=== PATIENT | female | born 1935 | race Caucasian/White ===

== ENCOUNTER 2016-12-30 16:20 | Inpatient (IN) ==
[2016-12-30] MEDS ORDERED: MORPHINE 2 MG/1 ML SYRINGE IV PRN (16:26)
[2016-12-30] MEDS ORDERED: ONDANSETRON 4 MG/2 ML VIAL IV PRN (16:26)
[2016-12-30] MEDS ORDERED: SODIUM CHLORIDE 0.9% 250 ML IV PRN (16:26)
[2016-12-30] MEDS ORDERED: NALOXONE 0.4 MG/ML VIAL IV PRN (16:26)
[2016-12-30] MEDS ORDERED: ACETAMINOPHEN 325 MG TABLET PO PRN (16:26)
[2016-12-30 18:25] LABS: Hematocrit 19.8 VOL% (35.7-47.0)
[2016-12-30 18:38] LABS: Hemoglobin 5.8 GM/DL (12.0-16.0)
[2016-12-30 18:57] LABS: % Iron Saturation 3.6 % (18-50); Ferritin 14.8 ng/ml (8-252)
[2016-12-30 19:32] LABS: Folate > 24.0 NG/ML (5.4-24.0); Vitamin B12 1915 PG/ML (211-911)
[2016-12-30] MEDS: SODIUM CHLORIDE 0.9% 1,000 ML IV SCH (19:33)
[2016-12-30] MEDS: DOCUSATE SODIUM 100 MG CAPSULE PO SCH (20:42)
[2016-12-30] MEDS: PANTOPRAZOLE 40 MG VIAL IV SCH (20:42)
[2016-12-31 00:06] LABS: Hematocrit 16.9 VOL% (35.7-47.0)
[2016-12-31 06:24] LABS: Basophils % 0.6 % (0.0-0.8); Eosinophils # 0.3 10*3/uL (0.0-0.87); Eosinophils % 4.4 % (0.00-10.9); Hematocrit 26.6 VOL% (35.7-47.0); Immature Granulocytes % 0.3 %; Immature Granulocytes Absolute 0.02 #; Lymphocytes # 1.9 10*3/uL (1.4-4.0); Lymphocytes % 29.5 % (21.3-54.2); Mean Corpuscular HGB Conc 30.5 GM/DL (32-36); Mean Corpuscular Hemoglobin 25 PG (27-34); Mean Corpuscular Volume 81.6 FL (87-102); Mean Platelet Volume 10.9 FL (9.6-12.0); Monocytes # 0.7 10*3/uL (0.11-0.8); Monocytes % 11.4 % (1.7-12.7); Neutrophils # 3.4 10*3/uL (1.4-7.4); Neutrophils % 53.8 % (38.7-73.9); Platelet Count 234 T/CUMM (130-400); Red Blood Count 3.26 MC/CUMM (3.8-5.5); Red Cell Distribution Width 15.9 % (9.3-17.3); White Blood Count 6.3 T/CUMM (4-12)
[2016-12-31 06:44] LABS: Calcium 8.4 MG/DL (8.5-10.1); Osmolality,Calculated 289.8 MOS/KG (273-304); Potassium 4.8 MMOL/L (3.5-5.1)
[2016-12-31 06:55] LABS: Hemoglobin 8.1 GM/DL (12.0-16.0)
--- NOTE | 2016-12-31 08:01 | Family Practice History&Phys ---
Assessment and Plan (1) Iron deficiency anemia Status: Acute Assessment and plan: 12/31/2016: Stool for occult blood has been ordered but not obtained. She is noted to have low iron and low ferritin level. GI has been consulted. She has been held n.p.o. since midnight. Her hemoglobin dropped down to 5 g and it is up to 8.1 this morning. Current Visit: Yes History of Present Illness Chief complaint: Weakness History of present illness: Ms. Alvares is a 81 year old female Patient is a 81-year-old white female was in the office yesterday with complaint of right shoulder pain. She was in the office for preoperative evaluation. Note that she was quite pale and her hemoglobin was 6. Patient denied any melena or blood in her stool but frankly told me she never looks. Patient was admitted for further evaluation for symptomatic anemia. She has never had a bleeding ulcer in the past and she denies any gross rectal bleeding. Patient does have dementia and history is of questionable validity. She denies any abdominal pain she does not have any dyspepsia or dysphagia. I have checked her B12 and folic acid fairly recently and these were normal. Home Medications Medication Instructions Recorded Confirmed Type Lisinopril 10 mg PO QAM 11/01/16 12/31/16 History Cholecalciferol (Vitamin D3) 1 capsule PO DAILY 12/31/16 12/31/16 History [Vitamin D3] Cyanocobalamin (Vitamin B-12) 1 tablet PO DAILY 12/31/16 12/31/16 History [Vitamin B-12] Multivit-Min/FA/Lycopen/Lutein 1 each PO DAILY 12/31/16 12/31/16 History [Centrum Silver Tablet] [place]-3/Dha/Epa/Fish Oil [Fish Oil 1 capsule PO DAILY 12/31/16 12/31/16 History 1,000 mg Softgel] Thiamine Mononitrate [Vitamin B-1] 1 tablet PO DAILY 12/31/16 12/31/16 History Vitamin E 1 capsule PO DAILY 12/31/16 12/31/16 History Allergies Allergy/AdvReac Type Severity Reaction Status Date / Time No Known Allergies Allergy Verified 11/28/16 02:37 - Constitutional Constitutional: Present: malaise, weakness. Absent: chills, fever(s) - EENT Eyes: Absent: blurry vision, loss of vision Ears: Absent: decreased hearing, ear pain Nose, mouth and throat: Absent: dysphagia, nasal congestion, sinus pressure, sore throat - Cardiovascular Cardiovascular: Absent: chest pain at rest, orthopnea, palpitations, PND - Respiratory Respiratory: Present: dyspnea on exertion. Absent: cough, wheezing - Gastrointestinal Gastrointestinal: Absent: abdominal pain, coffee ground emesis, diarrhea, dyspepsia, dysphagia, hematemesis, hematochezia, melena, nausea, vomiting - Genitourinary Genitourinary: Absent: difficulty urinating, hematuria, urinary frequency, urinary hesitancy - Musculoskeletal Musculoskeletal: Absent: arthralgias, back pain - Neurological Neurological: Absent: abnormal gait, confusion, focal weakness, numbness, paresthesias - Psychiatric Psychiatric: Absent: anxiety, confusion - Endocrine Endocrine: Present: fatigue. Absent: polydipsia, polyphagia - Hematologic/Lymphatic Hematologic/Lymphatic: Absent: easy bleeding, easy bruising Medical,Surgical,& Family Hx - Medical History Cardio: History of: Hypertension Neurology: History of: Dementia Musculoskeletal: History of: Musculoskeletal Problems (rotator cuff from fall, and toes operated on) - Surgical History HEENT Surgeries: Surgical HX of: Tonsilectomy & Adenoidectomy Reproductive Surgeries: Surgical HX of;: Breast Surgery (mastectomy but no cancer), Hysterectomy - Family History Family History: noncontributory - Social History Smoking Status: Never smoker Frequency of Alcohol Use: None Type of Drug Use: None Exam - Constitutional Vitals: Period Temp Pulse Resp BP Sys/Quevedo Pulse Ox Last 24 Hr 97.2 F-98 F 66-84 18-20 110-139/56-79 100-100 Exam: General: Objective patient is a well-developed white female in no acute distress. She is noted to have prominent pallor. HEENT: Conjunctiva is pale as of her mucous membranes. She is noted to have no pharyngeal abnormality in the TMs are normal bilaterally. Neck: No meningismus, adenopathy, thyromegaly. There are no auscultated carotid bruits. Cardiovascular: Regular rhythm. No murmurs or gallops Chest: Clear to auscultation without rales rhonchi wheezes. Abdomen: Soft nontender to palpation No masses, rebound, guarding or tenderness. Neuro: Cranial nerves intact and DTRs and strength symmetric in all extremities. Dermatologic: No evidence of abnormal lesions or masses. Musculoskeletal: There is no joint swelling or tenderness or deformity. Extremities: There is no calf swelling or tenderness. Results - Labs CBC & BMP: 12/31/16 06:04 12/31/16 06:04 Lab Results: I have reviewed the past 24 hour labs
[2016-12-31 09:18] LABS: Hematocrit 25.8 VOL% (35.7-47.0); Hemoglobin 8.1 GM/DL (12.0-16.0)
--- NOTE | 2016-12-31 09:45 | Gastrointestinal Consult Note ---
Assessment and Plan (1) Symptomatic anemia Status: Acute Assessment and plan: 12/31-admitted with hemoglobin of 6 with complaints of weakness. No prior history of known anemia. Last known EGD as below. Iron studies noted. Reports of NSAID use daily. Elevated BUN/creatinine ratio 32. Plan for tentative EGD tomorrow to further evaluate source of anemia. Plan an addendum to followed by Dr. Crocker. Current Visit: Yes History of Present Illness Chief complaint: Anemia History of present illness: Ms. Alvares is a 81 year old female who was admitted to the hospital this morning with complaints of weakness and right shoulder pain. She was seen in clinic yesterday by Dr. Johnson with complaints of shoulder pain which she was therefore a preoperative evaluation. She was found at that time to have a hemoglobin of 6 and did have some symptomatic anemia with complaints of weakness. She is a fair historian with questionable history of dementia therefore information is obtained from chart review. Patient states she has never been anemic in the past that she can recall. She denies having history of blood transfusions as well. She denies any epigastric pain, dyspepsia, dysphagia or recent weight loss. She denies any reports of melena or hematochezia. She denies any nausea or vomiting. She is not currently taking any anticoagulants however she does admit to taking approximately 5-6 ibuprofen daily and has done so for "a while" for her shoulder pain. She denies a prior history of peptic ulcer disease. Her last known upper endoscopy was noted 2012 with findings of esophageal stricture with dilation at that time. Unable to locate most recent colonoscopy in facility database and patient is unable to recall this. Patient is noted to have a BUN/creatinine ratio of 32. She has been transfused 2 units of packed red blood cells and H&H is noted 12/13. She also has had iron studies done with an iron of 16, TIBC of 446, percent saturation of 3.6. Home Medications Medication Instructions Recorded Confirmed Type Lisinopril 10 mg PO QAM 11/01/16 12/31/16 History Cholecalciferol (Vitamin D3) 1 capsule PO DAILY 12/31/16 12/31/16 History [Vitamin D3] Cyanocobalamin (Vitamin B-12) 1 tablet PO DAILY 12/31/16 12/31/16 History [Vitamin B-12] Multivit-Min/FA/Lycopen/Lutein 1 each PO DAILY 12/31/16 12/31/16 History [Centrum Silver Tablet] [place]-3/Dha/Epa/Fish Oil [Fish Oil 1 capsule PO DAILY 12/31/16 12/31/16 History 1,000 mg Softgel] Thiamine Mononitrate [Vitamin B-1] 1 tablet PO DAILY 12/31/16 12/31/16 History Vitamin E 1 capsule PO DAILY 12/31/16 12/31/16 History Allergies Allergy/AdvReac Type Severity Reaction Status Date / Time No Known Allergies Allergy Verified 11/28/16 02:37 Medical,Surgical,& Family Hx - Medical History Cardio: History of: Hypertension Neurology: History of: Dementia Musculoskeletal: History of: Musculoskeletal Problems (rotator cuff from fall, and toes operated on) - Surgical History HEENT Surgeries: Surgical HX of: Tonsilectomy & Adenoidectomy Reproductive Surgeries: Surgical HX of;: Breast Surgery (mastectomy but no cancer), Hysterectomy - Social History Smoking Status: Never smoker Frequency of Alcohol Use: None Type of Drug Use: None 12 point system: reviewed and no additional remarkable complaints except as stated - Constitutional Constitutional: Present: as per HPI - EENT Eyes: Present: as per HPI Ears: Present: as per HPI Nose, mouth and throat: Present: as per HPI - Cardiovascular Cardiovascular: Present: as per HPI - Respiratory Respiratory: Present: as per HPI - Gastrointestinal Gastrointestinal: Present: as per HPI - Genitourinary Genitourinary: Present: as per HPI - Musculoskeletal Musculoskeletal: Present: as per HPI, arthralgias, other (Shoulder pain) - Neurological Neurological: Present: as per HPI - Psychiatric Psychiatric: Present: as per HPI - Endocrine Endocrine: Present: as per HPI - Hematologic/Lymphatic Hematologic/Lymphatic: Present: as per HPI Exam - Constitutional Vitals: Period Temp Pulse Resp BP Sys/Quevedo Pulse Ox Last 24 Hr 97.1 F-98 F 66-84 18-20 110-139/56-79 91-100 General appearance: normal weight, no acute distress - Head Head exam: Present: normal inspection, normocephalic - Eye Eye exam: Present: other (Lives and identified unremarkable). Absent: scleral icterus - ENT ENT exam: Present: normal exam, normal oropharynx - Neck Neck exam: Present: normal inspection - Respiratory Respiratory exam: Present: clear to auscultation bilaterally. Absent: rales, rhonchi, wheezes - Cardiovascular Cardiovascular exam: Present: regular rate and rhythm. Absent: diastolic murmur , JVD, systolic murmur - GI/Abdominal GI/Abdominal exam: Present: normal bowel sounds, soft. Absent: ascites, distended, mass, organomegaly, tenderness - Extremities Exam Extremities exam: Present: normal inspection, full ROM - Back Exam Back exam: Present: normal inspection - Neurological Exam Neurological exam: Present: alert, oriented X3 - Psychiatric Psychiatric exam: Present: normal affect, normal mood - Skin Skin exam: Present: normal color, warm, dry Results - Labs CBC & BMP: 12/31/16 08:52 12/31/16 06:04 Lab Results: I have reviewed the past 24 hour labs
[2016-12-31 10:01] LABS: Apearance,Urine Slightly Hazy (Clear); Bacteria,Urine Occasional /HPF (Few); Bilirubin,Urine Negative (Negative); Blood, Urine Negative (Negative); Glucose,Urine (UA) Negative (Negative); Hyaline Casts,Urine 1 /LPF (0-3); Ketones,Urine Negative (Negative); Mucus,Urine Occasional /LPF (Occasional); Nitrite,Urine Negative (Negative); Protein,Urine Negative; RBC,Urine 1 /HPF (0-4); Squamous Epithelial Cell,Urine Occasional /HPF (0-10); Urine Color Yellow (Yellow); Urine Specific Gravity 1.013 (1.001-1.035); Urine Urobilinogen < 2.0 EU/DL (0.2-1.0); WBC,Urine 8 /HPF (0-6)
[2016-12-31] MEDS: GABAPENTIN 100 MG CAPSULE PO SCH (10:16)
[2016-12-31] MEDS: LISINOPRIL 10 MG TABLET PO SCH (10:16)
[2016-12-31] MEDS: DOCUSATE SODIUM 100 MG CAPSULE PO SCH ×2 (10:20→20:56)
[2016-12-31] MEDS: PANTOPRAZOLE 40 MG VIAL IV SCH ×2 (10:23→20:56)
[2016-12-31] MEDS: SODIUM CHLORIDE 0.9% 1,000 ML IV SCH ×2 (11:18→20:56)
[2016-12-31 11:29] LABS: Hematocrit 25.3 VOL% (35.7-47.0)
--- NOTE | 2016-12-31 12:56 | EKG Report ---
Stationary ECG Study [facility] Test Date: 12/31/2016 12:55:12 PM Pat Name: EVELYNE ALVARADO Department: Room: 238 Gender: F [employer]: : 1935 Requested by: Oxana Ortiz Order Number: [id number] Reading MD: MING PETERSON Intervals [place] Rate: 78 P: 57 MT: 108 QRS: 37 QRSD: 86 T: 50 QT: 383 QTc: 417 Interpretive Statements SINUS RHYTHM WITH SHORT MT INTERVAL NONSPECIFIC T-WAVE ABNORMALITY Electronically Signed On 12-31-16 22:27:34 CDT by MING PETERSON [email or web address]
[2016-12-31 17:55] LABS: Hematocrit 27.2 VOL% (35.7-47.0); Hemoglobin 8.4 GM/DL (12.0-16.0)
[2017-01-01 01:02] LABS: Hematocrit 25.8 VOL% (35.7-47.0); Hemoglobin 7.9 GM/DL (12.0-16.0)
[2017-01-01] MEDS: SODIUM CHLORIDE 0.9% 1,000 ML IV SCH ×2 (05:00→17:10)
[2017-01-01 06:48] LABS: Hematocrit 24.8 VOL% (35.7-47.0); Hemoglobin 7.7 GM/DL (12.0-16.0)
--- NOTE | 2017-01-01 08:18 | Family Practice Progress Note ---
Family Practice - PN: Subj Interval history: Patient states she is feeling better this morning she denies any abdominal pain or discomfort. Her color certainly much better than was on admission. Her hematocrit has dropped to 25.8. She is scheduled for EGD this morning. She denies any nausea or vomiting. Exam (Progress Note) - Constitutional Vitals: Period Temp Pulse Resp BP Sys/Quevedo Pulse Ox Last 24 Hr 96.5 F-98.5 F 71-84 18-20 124-136/64-78 93-98 Exam: Objective a well-developed white female no acute distress. She is awake alert and able give good history. She states she is comfortable and having no pain or discomfort. Cardiovascular: Heart rates regular without murmurs or gallops. Respiratory: Lungs clear to auscultation bilaterally. Abdomen: Abdomen soft and nontender to palpation. Results - Labs CBC & BMP: 01/01/17 05:53 12/31/16 06:04 Lab Results: I have reviewed the past 24 hour labs Assessment and Plan (1) Iron deficiency anemia Status: Acute Assessment and plan: 12/31/2016: Stool for occult blood has been ordered but not obtained. She is noted to have low iron and low ferritin level. GI has been consulted. She has been held n.p.o. since midnight. Her hemoglobin dropped down to 5 g and it is up to 8.1 this morning. 01/01/2017: Patient scheduled for EGD this morning. Current Visit: Yes
[2017-01-01] MEDS: LISINOPRIL 10 MG TABLET PO SCH (09:00)
[2017-01-01] MEDS: GABAPENTIN 100 MG CAPSULE PO SCH ×2 (09:00→17:11)
[2017-01-01] MEDS: DOCUSATE SODIUM 100 MG CAPSULE PO SCH ×2 (09:00→21:05)
[2017-01-01] MEDS: PANTOPRAZOLE 40 MG VIAL IV SCH ×2 (10:10→21:05)
[2017-01-01 11:59] LABS: Hematocrit 25.7 VOL% (35.7-47.0)
[2017-01-01] MEDS ORDERED: PROPOFOL 200 MG/20 ML VIAL IV ONE (12:46)
[2017-01-01] MEDS ORDERED: LIDOCAINE 2% 5 ML VIAL ONE (12:46)
--- NOTE | 2017-01-01 12:50 | History and Physical Update ---
History and Physical Update - History and Physical H&P was reviewed, the patient examined and there: are no changes in the patients condition since last H&P was completed. - Physical Exam Mental Status: alert and oriented Heart: regular rate and rhythm Lung: clear to auscultation Abdomen: within normal limits Vitals: within normal limits
--- NOTE | 2017-01-01 12:59 | Operative Note ---
Date of procedure: 01/01/17 Pre-op diagnosis: Iron deficiency anemia Procedure: Procedure: Esophagogastroduodenoscopy with biopsies gastric ulcer Brief clinical abstract: 81-year-old female was admitted with symptomatic iron deficiency anemia. She had hemoglobin of 6 on presentation. She denies any localizing symptoms including gross bleeding. Patient had been taking ibuprofen 800 mg 2-3 times a day for the last couple months. Indication for procedure: Iron deficiency anemia Endoscopic findings:[After informed consent was obtained, the patient was placed in the left lateral decubitus position. The gastroscope was inserted in the upper esophagus under direct vision with no resistance encountered. Esophageal mucosa appeared normal with squamocolumnar junction sharply demarcated at the diaphragmatic indentation. The endoscope was advanced in the stomach which was carefully examined including retroflexed view of the cardia and fundus. There was an approximate 1 cm diameter white based ulcer along the lesser curve in the proximal fundus above the angularis. Multiple biopsies were obtained from this for pathologic examination. It had benign appearance. Remainder the stomach appeared normal. Duodenal bulb, second and third portion of the duodenum appeared normal. The endoscope was removed and patient appeared to tolerate procedure well. Impression: #1 gastric ulcer #2 otherwise normal EGD Recommendations: PPI therapy. Stop nonsteroidal medication use. Patient needs colonoscopy also at some point and will talk to her and family about timing of this. Anesthesia: GETA (tiva) Surgeon / Physician: Rainer Crocker Estimated blood loss: minimal Specimens: other (Gastric ulcer) Condition: stable Disposition: post procedure unit Results - Labs CBC & BMP: 01/01/17 11:34 12/31/16 06:04 Discharge Plan - Discharge Medications No Action Vitamin E 1 capsule PO DAILY Thiamine Mononitrate [Vitamin B-1] 1 tablet PO DAILY [place]-3/Dha/Epa/Fish Oil [Fish Oil 1,000 mg Softgel] 1 capsule PO DAILY Cyanocobalamin (Vitamin B-12) [Vitamin B-12] 1 tablet PO DAILY Cholecalciferol (Vitamin D3) [Vitamin D3] 1 capsule PO DAILY Lisinopril 10 mg PO QAM Multivit-Min/FA/Lycopen/Lutein [Centrum Silver Tablet] 1 each PO DAILY - Follow Up or Referral - Forms/Instructions
--- NOTE | 2017-01-01 13:09 | Anesthesia Post-Op ---
Anesthesia Post OP - Post Ansesthetic Evaluation Patient seen in post op: Yes Resp: within normal limits CV: within normal limits Mental: within normal limits Temp: within normal limits [id number]-[id number]: within normal limits Nausea and Vomiting: within normal limits Pain: within normal limits
[2017-01-01] MEDS ORDERED: POLYETHYLENE GLYCOL POWDER 255 GM BOTTLE PO ONE (18:00)
[2017-01-02] MEDS ORDERED: MAGNESIUM CITRATE 300 ML BOTTLE PO ONE (06:00)
[2017-01-02] MEDS ORDERED: SODIUM CHLORIDE 0.9% 250 ML IV PRN (07:26)
[2017-01-02 07:45] LABS: Basophils % 0.5 % (0.0-0.8); Eosinophils # 0.3 10*3/uL (0.0-0.87); Eosinophils % 3.2 % (0.00-10.9); Hematocrit 27.5 VOL% (35.7-47.0); Hemoglobin 8.4 GM/DL (12.0-16.0); Immature Granulocytes % 0.6 %; Immature Granulocytes Absolute 0.05 #; Lymphocytes # 0.9 10*3/uL (1.4-4.0); Mean Corpuscular HGB Conc 30.5 GM/DL (32-36); Mean Corpuscular Hemoglobin 25 PG (27-34); Mean Corpuscular Volume 80.4 FL (87-102); Mean Platelet Volume 11.1 FL (9.6-12.0); Monocytes # 0.9 10*3/uL (0.11-0.8); Monocytes % 10.9 % (1.7-12.7); Neutrophils % 73.8 % (38.7-73.9); Platelet Count 213 T/CUMM (130-400); Red Blood Count 3.42 MC/CUMM (3.8-5.5); Red Cell Distribution Width 16.7 % (9.3-17.3); White Blood Count 8.2 T/CUMM (4-12)
[2017-01-02] MEDS ORDERED: FUROSEMIDE 20 MG/2 ML VIAL IV ONE ×2 (08:00→12:00)
--- NOTE | 2017-01-02 08:00 | Family Practice Progress Note ---
Family Practice - PN: Subj Interval history: Patient states she had a good night last night. Is found to have gastric ulcer on EGD with no active bleeding. Repeat hematocrits are running around 25% and I think she needs a couple more units of blood. She is scheduled for colonoscopy today. Patient is noted to have decreased O2 sats on her vital signs and I am going to get a chest x-ray this a.m. Exam (Progress Note) - Constitutional Vitals: Period Temp Pulse Resp BP Sys/Quevedo Pulse Ox Last 24 Hr 97.1 F-98.9 F 73-100 16-20 114-172/57-065 90-100 Exam: Objective a well-developed white female no acute distress. She is awake alert and able give good history. She complains of little dyspnea this morning and back pain. Cardiovascular: Heart rates regular without murmurs or gallops. Respiratory: Lungs clear to auscultation bilaterally. Abdomen: Abdomen soft and nontender to palpation. Results - Labs CBC & BMP: 01/02/17 07:37 12/31/16 06:04 Lab Results: I have reviewed the past 24 hour labs Assessment and Plan (1) Iron deficiency anemia Status: Acute Assessment and plan: 12/31/2016: Stool for occult blood has been ordered but not obtained. She is noted to have low iron and low ferritin level. GI has been consulted. She has been held n.p.o. since midnight. Her hemoglobin dropped down to 5 g and it is up to 8.1 this morning. 01/01/2017: Patient scheduled for EGD this morning. 01/02/2017: Patient with gastric ulcer on EGD, continue PPI. Her hematocrit still 25% through the night and I am going to give her 2 more units of blood. Current Visit: Yes (2) Dyspnea Status: Acute Assessment and plan: 01/02/2017: Chest x-ray has been ordered. And 20 mg of Lasix will be ordered Current Visit: Yes
[2017-01-02 08:19] LABS: Calcium 8.6 MG/DL (8.5-10.1); Potassium 4.2 MMOL/L (3.5-5.1)
[2017-01-02] MEDS ORDERED: PROPOFOL 200 MG/20 ML VIAL IV ONE (09:00)
[2017-01-02] MEDS: LISINOPRIL 10 MG TABLET PO SCH (09:00)
[2017-01-02] MEDS ORDERED: LIDOCAINE 2% 5 ML VIAL ONE (09:00)
[2017-01-02] MEDS: GABAPENTIN 100 MG CAPSULE PO SCH ×2 (09:00→19:10)
[2017-01-02] MEDS: DOCUSATE SODIUM 100 MG CAPSULE PO SCH ×2 (09:00→21:11)
--- NOTE | 2017-01-02 09:06 | XRay Report ---
XR chest 1V portable Indication: Dyspnea Comparison: None available Findings: The heart and mediastinum are stable in size and configuration. The pulmonary vascularity is normal in caliber. Surgical changes are present in the right chest wall similar to previous exam. No lung infiltrates, effusions, pneumothorax or other abnormality is demonstrated. Impression: No evidence of acute process or interval change. PROCEDURE INTERPRETED AT [facility] DEPARTMENT OF RADIOLOGY Final Report Signed by: Dr. Dennis Garcia
[2017-01-02] MEDS: SODIUM CHLORIDE 0.9% 1,000 ML IV SCH ×2 (09:15→18:24)
[2017-01-02] MEDS: PANTOPRAZOLE 40 MG VIAL IV SCH ×2 (10:50→21:11)
--- NOTE | 2017-01-02 11:29 | Pathology Report from [facility] ---
[facility] ACCESSION # : [id number] PATIENT NAME : Evelyne Alvares ORDERING DR : VALERIY HERRERA MD CLINICAL HX: Anemia POST-OP DX: Gastric ulcer SPECIMEN INFO: Gastric ulcer GROSS DESCRIPTION: The specimen is received in formalin labeled with the patients name and consists of a 0.5 x 0.3 cm aggregate of ibarra tissue. Submitted in one cassette. DIAGNOSIS FOR EVELYNE ALVARES: GASTRIC ULCER BIOPSY: Fragmented superficial gastric mucosa with regenerative changes and blood. H. pylori not seen on H&E or special stain with appropriate control. COLLECTED DATE: 01/01/2017 [facility] REPORT DATE: 01/02/2017 ELECTRONICALLY SIGNED BY: Mir Barnett M.D. 01/02/2017 - 10:08:05 LAURIE
--- NOTE | 2017-01-02 13:31 | Operative Note ---
Date of procedure: 01/02/17 Pre-op diagnosis: Iron deficiency anemia Procedure: Procedure note: Colonoscopy with snare polypectomy Physician: Dr. Angel Crocker Brief clinical abstract: 81-year-old female was admitted with symptomatic iron deficiency anemia. She had gastric ulcer on EGD yesterday. Endoscopic findings: After informed consent was obtained, the patient was placed in the left lateral decubitus position. Digital rectal exam was performed with no palpable abnormalities felt. Pediatric videocolonoscope was inserted into the rectum and advanced to the cecum without difficulty. Retroflex view within the cecum was performed back to the level of the hepatic flexure. The endoscope was advanced back to the cecum and on withdrawal colonic mucosa was carefully examined. Bowel prep was of good quality. Withdrawal time was over 6 minutes duration. Vascular pattern throughout the colon appeared normal. There were a moderate number of diverticuli in the left colon. A 6 mm polyp was noted in the distal sigmoid colon and removed with snare using coagulation current. The endoscope was withdrawn in the rectum with retroflex view showing moderate sized internal hemorrhoids. The endoscope was removed and she appeared to tolerate the procedure well. Impression: #1 sigmoid colon polyp #2 left colon diverticulosis #3 moderate sized internal hemorrhoids Plan: At age 81, would discontinue colon cancer screening measures. Continue PPI therapy for gastric ulcer and have given instructions for her to discontinue NSAID use. Noted also that gastric ulcer had benign pathology with no H pylori seen. I will sign off. Please call if needed. Anesthesia: GETA (tiva) Surgeon / Physician: Rainer Crocker Estimated blood loss: none Specimens: other (Sigmoid colon polyp) Condition: stable Disposition: post procedure unit Results - Labs CBC & BMP: 01/02/17 07:37 01/02/17 07:37 Discharge Plan - Discharge Medications No Action Vitamin E 1 capsule PO DAILY Thiamine Mononitrate [Vitamin B-1] 1 tablet PO DAILY [place]-3/Dha/Epa/Fish Oil [Fish Oil 1,000 mg Softgel] 1 capsule PO DAILY Cyanocobalamin (Vitamin B-12) [Vitamin B-12] 1 tablet PO DAILY Cholecalciferol (Vitamin D3) [Vitamin D3] 1 capsule PO DAILY Lisinopril 10 mg PO QAM Multivit-Min/FA/Lycopen/Lutein [Centrum Silver Tablet] 1 each PO DAILY - Follow Up or Referral - Forms/Instructions
--- NOTE | 2017-01-02 13:44 | Anesthesia Post-Op ---
Anesthesia Post OP - Post Ansesthetic Evaluation Patient seen in post op: Yes Resp: within normal limits CV: within normal limits Mental: within normal limits Temp: within normal limits Kofo-Lk-[id number]: within normal limits Nausea and Vomiting: within normal limits Pain: within normal limits
[2017-01-03] MEDS: SODIUM CHLORIDE 0.9% 1,000 ML IV SCH ×2 (04:04→10:31)
[2017-01-03 07:02] LABS: Basophils % 0.5 % (0.0-0.8); Eosinophils # 0.4 10*3/uL (0.0-0.87); Eosinophils % 4.5 % (0.00-10.9); Hematocrit 32.7 VOL% (35.7-47.0); Immature Granulocytes % 0.3 %; Immature Granulocytes Absolute 0.03 #; Lymphocytes # 1.1 10*3/uL (1.4-4.0); Lymphocytes % 12.4 % (21.3-54.2); Mean Corpuscular HGB Conc 31.5 GM/DL (32-36); Mean Corpuscular Hemoglobin 25 PG (27-34); Mean Corpuscular Volume 79.4 FL (87-102); Mean Platelet Volume 11.8 FL (9.6-12.0); Monocytes # 0.9 10*3/uL (0.11-0.8); Monocytes % 10.5 % (1.7-12.7); Neutrophils # 6.3 10*3/uL (1.4-7.4); Neutrophils % 71.8 % (38.7-73.9); Platelet Count 193 T/CUMM (130-400); Red Cell Distribution Width 16.4 % (9.3-17.3); White Blood Count 8.8 T/CUMM (4-12)
[2017-01-03 07:11] LABS: Hemoglobin 10.3 GM/DL (12.0-16.0); Red Blood Count 4.12 MC/CUMM (3.8-5.5)
[2017-01-03] MEDS ORDERED: cefTRIAXone 1,000 MG in SODIUM CHLORIDE 0.9% 100 ML IV ONE (07:36)
[2017-01-03 08:07] VITALS: BP 148/73
--- NOTE | 2017-01-03 08:23 | Discharge Summary ---
Hospital Course - Hospital Course Hospital Course: Patient 81-year-old white female presented to the office with weakness, pallor and was here for preoperative evaluation. She was found to have a hemoglobin of 6 was admitted for further evaluation. Her hemoglobin dropped to 5 and she was transfused 4 units packed red blood cells. Hemoglobin was 10 this morning. Patient was seen in consultation by Dr. Chepe Crocker was found to have a gastric ulcer, diverticulosis and a colonic polyp. There was no active site of bleeding in the location. Patient felt much better after transfusion of course and is anxious for discharge today. I told her we would have to delay her surgery until we make sure her blood count stabilized. She is to return the office next week for repeat CBC. Diagnosis - Discharge Diagnosis (1) Iron deficiency anemia Status: Acute (2) Dyspnea Status: Acute (3) Gastric ulcer Status: Acute Discharge Plan - Discharge Data Disposition: Disch To Home/Self Care Condition at Discharge: Stable Discharge Diet: advance to your usual diet Activity: resume usual activities as tolerated Hygiene: no restrictions Weight Bearing at Discharge: full weight bearing Contact your physician if you experience:: fever over 101, Shortness of breath, Bleeding - Discharge Medications New Amoxicillin Cap/Tab 875 mg PO BID #14 tablet Gabapentin Cap/Tab [Neurontin Cap/Tab] 100 mg PO QAM capsule Sertraline [Zoloft] 50 mg PO BID #30 tablet Acetaminophen Tab [Tylenol Tab] 650 mg PO Q6H PRN tablet PRN Reason: Fever > 100.4 Or Headache Pantoprazole Tab [Protonix Tab] 40 mg PO BID #60 tablet Continue Vitamin E 1 capsule PO DAILY Thiamine Mononitrate [Vitamin B-1] 1 tablet PO DAILY [place]-3/Dha/Epa/Fish Oil [Fish Oil 1,000 mg Softgel] 1 capsule PO DAILY Cyanocobalamin (Vitamin B-12) [Vitamin B-12] 1 tablet PO DAILY Cholecalciferol (Vitamin D3) [Vitamin D3] 1 capsule PO DAILY Lisinopril 10 mg PO QAM Multivit-Min/FA/Lycopen/Lutein [Centrum Silver Tablet] 1 each PO DAILY - Follow Up or Referral - Forms/Instructions Exam - Constitutional Vitals: Period Temp Pulse Resp BP Sys/[place] Pulse Ox Last 24 Hr 97.7 F-98.8 F 72-97 16-23 117-165/64-87 90-96 Exam: Objective a well-developed white female no acute distress. She is awake alert and able give good history. She was noted to have an E. coli UTI. IV Rocephin has been ordered. Cardiovascular: Heart rates regular without murmurs or gallops. Respiratory: Lungs clear to auscultation bilaterally. Abdomen: Abdomen soft and nontender to palpation. Discharge Results Procedures and tests throughout hospitalization: Pending Orders 12/30/16 11:45 Occult Blood, Stool Stat Labs on day of discharge: Labs from last 24 hours 01/03/17 01/02/17 01/02/17 06:19 07:37 07:26 WBC 8.8 RBC 4.12 D Hgb 10.3 L D Hct 32.7 L MCV 79.4 L MCH 25 L MCHC 31.5 L RDW 16.4 Plt Count 193 MPV 11.8 Neut % (Auto) 71.8 Lymph % (Auto) 12.4 L [place] % (Auto) 10.5 Eos % (Auto) 4.5 Baso % (Auto) 0.5 Neut # (Auto) 6.3 Lymph # (Auto) 1.1 L [place] # (Auto) 0.9 H Eos # (Auto) 0.4 Baso # (Auto) 0.0 Immature Gran % 0.3 Nucleated RBC % 0.0 Immature Gran # 0.03 Nucleated RBCs # 0.00 Immature Plt Fraction 0.0 Sodium 143 Potassium 4.2 Chloride 115 H Carbon Dioxide 19 L Anion Gap 13.2 BUN 13 Creatinine 0.70 GFR Calculation 81 BUN/Creatinine Ratio 18.00 Glucose 110 H Calculated Osmolality 285.0 Calcium 8.6 Blood Type A POSITIVE Antibody Screen Negative Crossmatch See Detail Patient's noted to have E. coli on urine culture. Appropriate antibiotics were begun. Hemoglobin was 10 g. DS: Provider Date of admission: 12/30/16 16:26 Primary care physician: Beltran Johnson MD Attending physician on admission: Beltran Johnson MD Consults: 12/30/16 16:26 Consult to Case Mgmt/Social Srvs [CONS] Routine Reason for Case Mgmt/Social Srvs: Discharge Planning 12/30/16 16:30 Consult to Physician [CONS] Routine Comment: Consulting Provider: Rainer Crocker Discharging clinician: Beltran Johnson MD Expected date of discharge: 01/03/17
[2017-01-03] MEDS: PANTOPRAZOLE 40 MG VIAL IV SCH (08:34)
[2017-01-03] MEDS: DOCUSATE SODIUM 100 MG CAPSULE PO SCH (09:58)
[2017-01-03] MEDS: GABAPENTIN 100 MG CAPSULE PO SCH (09:58)
[2017-01-03] MEDS: LISINOPRIL 10 MG TABLET PO SCH (09:58)
--- NOTE | 2017-01-03 11:21 | Pathology Report from [facility] ---
[facility] ACCESSION # : [id number] PATIENT NAME : Evelyne Alvares ORDERING DR : VALERIY HERRERA MD CLINICAL HX: Iron def anemia POST-OP DX: Colon polyp sigmoid SPECIMEN INFO: Colon polyp sigmoid GROSS DESCRIPTION: The specimen is received in formalin labeled with the patients name and consists of a 0.3 x 0.3 cm red-ibarra polypoid mucosal tissue fragment. Submitted in one cassette. DIAGNOSIS FOR EVELYNE ALVARES: SIGMOID COLON, BIOPSY: Tubular adenoma. COLLECTED DATE: 01/02/2017 [facility] REPORT DATE: 01/03/2017 ELECTRONICALLY SIGNED BY: Juliet Mccrary III, M.D. 01/03/2017 - 8:29:59 MTDTess
--- NOTE | 2017-01-03 18:21 | Pathology Report from [facility] ---
[facility] ACCESSION # : [id number] PATIENT NAME : Evelyne Alvares ORDERING DR : VALERIY HERRERA MD CLINICAL HX: Iron def anemia POST-OP DX: Colon polyp sigmoid SPECIMEN INFO: Colon polyp sigmoid GROSS DESCRIPTION: The specimen is received in formalin labeled with the patients name and consists of a 0.3 x 0.3 cm red-ibarra polypoid mucosal tissue fragment. Submitted in one cassette. DIAGNOSIS FOR EVELYNE ALVARES: SIGMOID COLON, BIOPSY: Tubular adenoma. COLLECTED DATE: 01/02/2017 [facility] REPORT DATE: 01/03/2017 ELECTRONICALLY SIGNED BY: Juliet Mccrary III, M.D. 01/03/2017 - 8:29:59 MTDTess
== END 2017-01-03 11:05 | disposition home health service (06) | DRG 812 ==
LOC: N.2E 16:54
PROVIDERS: ADMIT Family Medicine; ATTEND Family Medicine

== ENCOUNTER 2017-07-12 04:30 | Inpatient (IN) ==
[2017-07-12] MEDS ORDERED: MORPHINE 2 MG/1 ML SYRINGE IV ONE (04:34)
[2017-07-12] MEDS ORDERED: ONDANSETRON 4 MG/2 ML VIAL IV ONE (04:34)
[2017-07-12] MEDS ORDERED: ONDANSETRON 4 MG/2 ML VIAL ONE (04:47)
[2017-07-12] MEDS ORDERED: MORPHINE 10 MG/1 ML VIAL ONE (04:48)
[2017-07-12 05:16] LABS: Basophils % 0.6 % (0.0-0.8); Eosinophils # 0.2 10*3/uL (0.0-0.87); Eosinophils % 2.5 % (0.00-10.9); Hematocrit 36.5 VOL% (35.7-47.0); Hemoglobin 12.3 GM/DL (12.0-16.0); Immature Granulocytes % 0.4 %; Immature Granulocytes Absolute 0.03 #; Lymphocytes # 1.5 10*3/uL (1.4-4.0); Lymphocytes % 22.6 % (21.3-54.2); Mean Corpuscular HGB Conc 33.7 GM/DL (32-36); Mean Corpuscular Hemoglobin 32 PG (27-34); Mean Corpuscular Volume 95.5 FL (87-102); Mean Platelet Volume 10.1 FL (9.6-12.0); Monocytes # 0.5 10*3/uL (0.11-0.8); Monocytes % 6.9 % (1.7-12.7); Neutrophils # 4.5 10*3/uL (1.4-7.4); Platelet Count 245 T/CUMM (130-400); Red Blood Count 3.82 MC/CUMM (3.8-5.5); Red Cell Distribution Width 13.8 % (9.3-17.3); White Blood Count 6.8 T/CUMM (4-12)
[2017-07-12 05:41] LABS: PT Patient Result 10.4 SECS
[2017-07-12 05:56] LABS: Alanine Aminotransferase 19 U/L (13-56); Albumin 3.4 G/DL (3.4-5.0); Alkaline Phosphatase 62 U/L (45-117); Aspartate Amino Transferase 16 U/L (0-37); Blood Urea Nitrogen 13 MG/DL (7-18); Calcium 9.2 MG/DL (8.5-10.1); Glucose 107 MG/DL (74-106); Osmolality,Calculated 280.3 MOS/KG (273-304); Potassium 3.7 MMOL/L (3.5-5.1); Sodium 141 MMOL/L (136-145); Total Protein 7.2 G/DL (6.4-8.3); Troponin I Only < 0.015 NG/ML (0.00-0.045)
[2017-07-12] MEDS ORDERED: KETOROLAC 30 MG/1 ML VIAL ONE (06:42)
[2017-07-12] MEDS ORDERED: NALOXONE 0.4 MG/ML VIAL IV PRN (06:48)
[2017-07-12] MEDS ORDERED: ACETAMINOPHEN 325 MG TABLET PO PRN (06:48)
[2017-07-12] MEDS ORDERED: ONDANSETRON 4 MG/2 ML VIAL IV PRN (06:48)
[2017-07-12] MEDS ORDERED: HYDROmorphone 2 MG/1 ML VIAL IV PRN (06:48)
[2017-07-12] MEDS ORDERED: traMADol 50 MG TABLET PO PRN (06:48)
[2017-07-12] MEDS ORDERED: KETOROLAC 30 MG/1 ML VIAL IV STA (06:53)
[2017-07-12 06:59] LABS: Apearance,Urine CLEAR (Clear); Bacteria,Urine Occasional /HPF (Few); Bilirubin,Urine Negative (Negative); Blood, Urine Small mg/dL (Negative); Glucose,Urine (UA) Negative (Negative); Ketones,Urine Negative (Negative); Mucus,Urine Occasional /LPF (Occasional); Nitrite,Urine Negative (Negative); Protein,Urine Negative; Squamous Epithelial Cell,Urine Occasional /HPF (0-10); Urine Color Yellow (Yellow); Urine Specific Gravity 1.004 (1.001-1.035); Urine Urobilinogen < 2.0 EU/DL (0.2-1.0); WBC,Urine 3 /HPF (0-6)
[2017-07-12] MEDS: PANTOPRAZOLE 40 MG TABLET PO SCH ×3 (09:37→21:43)
[2017-07-12] MEDS: LISINOPRIL 10 MG TABLET PO SCH (10:00)
[2017-07-12] MEDS: DOCUSATE SODIUM 100 MG CAPSULE PO SCH ×2 (10:00→21:44)
[2017-07-12] MEDS: MULTIVITAMIN (CENTRUM) TABLET PO SCH (10:00)
[2017-07-12] MEDS: THIAMINE 100 MG TABLET PO SCH (10:01)
[2017-07-12] MEDS: CARBIDOPA/LEVODOPA 25-100 MG TABLET PO SCH ×3 (10:01→21:44)
[2017-07-12] MEDS: OMEGA 3 ACID ETHYL ESTERS 1 GM CAPSULE PO SCH (10:01)
[2017-07-12] MEDS: SERTRALINE 50 MG TABLET PO SCH ×2 (10:01→21:43)
[2017-07-12] MEDS: CHOLECALCIFEROL 1,000 UNIT TABLET PO SCH (10:01)
[2017-07-12] MEDS: VITAMIN E 400 UNIT CAPSULE PO SCH (10:01)
[2017-07-12] MEDS: LIDOCAINE 5% PATCH TRANSDERM SCH (21:43)
[2017-07-13] MEDS: VITAMIN E 400 UNIT CAPSULE PO SCH (10:02)
[2017-07-13] MEDS: OMEGA 3 ACID ETHYL ESTERS 1 GM CAPSULE PO SCH (10:02)
[2017-07-13] MEDS: SERTRALINE 50 MG TABLET PO SCH ×2 (10:02→20:24)
[2017-07-13] MEDS: CHOLECALCIFEROL 1,000 UNIT TABLET PO SCH (10:02)
[2017-07-13] MEDS: MULTIVITAMIN (CENTRUM) TABLET PO SCH (10:02)
[2017-07-13] MEDS: CARBIDOPA/LEVODOPA 25-100 MG TABLET PO SCH ×3 (10:02→20:24)
[2017-07-13] MEDS: THIAMINE 100 MG TABLET PO SCH (10:02)
[2017-07-13] MEDS: LISINOPRIL 10 MG TABLET PO SCH (10:02)
[2017-07-13] MEDS: DOCUSATE SODIUM 100 MG CAPSULE PO SCH ×2 (10:03→20:24)
[2017-07-13] MEDS: PANTOPRAZOLE 40 MG TABLET PO SCH ×3 (10:03→20:24)
[2017-07-13] MEDS: LIDOCAINE 5% PATCH TRANSDERM SCH (10:03)
[2017-07-13] MEDS: ENOXAPARIN 30 MG/0.3 ML SYRINGE SUBCUT SCH (13:13)
[2017-07-14 05:46] LABS: Basophils % 0.6 % (0.0-0.8); Eosinophils # 0.2 10*3/uL (0.0-0.87); Eosinophils % 4.1 % (0.00-10.9); Hematocrit 32.4 VOL% (35.7-47.0); Immature Granulocytes % 0.4 %; Immature Granulocytes Absolute 0.02 #; Lymphocytes # 1.5 10*3/uL (1.4-4.0); Lymphocytes % 28.8 % (21.3-54.2); Mean Corpuscular Hemoglobin 32 PG (27-34); Mean Platelet Volume 10.2 FL (9.6-12.0); Monocytes # 0.5 10*3/uL (0.11-0.8); Monocytes % 8.7 % (1.7-12.7); Neutrophils % 57.4 % (38.7-73.9); Platelet Count 223 T/CUMM (130-400); Red Blood Count 3.41 MC/CUMM (3.8-5.5); Red Cell Distribution Width 13.4 % (9.3-17.3); White Blood Count 5.2 T/CUMM (4-12)
[2017-07-14 06:18] LABS: Osmolality,Calculated 284.1 MOS/KG (273-304)
[2017-07-14] MEDS: DOCUSATE SODIUM 100 MG CAPSULE PO SCH (10:21)
[2017-07-14] MEDS: CHOLECALCIFEROL 1,000 UNIT TABLET PO SCH (10:21)
[2017-07-14] MEDS: OMEGA 3 ACID ETHYL ESTERS 1 GM CAPSULE PO SCH (10:22)
[2017-07-14] MEDS: CARBIDOPA/LEVODOPA 25-100 MG TABLET PO SCH ×2 (10:22→15:01)
[2017-07-14] MEDS: MULTIVITAMIN (CENTRUM) TABLET PO SCH (10:22)
[2017-07-14] MEDS: VITAMIN E 400 UNIT CAPSULE PO SCH (10:22)
[2017-07-14] MEDS: PANTOPRAZOLE 40 MG TABLET PO SCH ×2 (10:22)
[2017-07-14] MEDS: LISINOPRIL 10 MG TABLET PO SCH (10:22)
[2017-07-14] MEDS: THIAMINE 100 MG TABLET PO SCH (10:22)
[2017-07-14] MEDS: LIDOCAINE 5% PATCH TRANSDERM SCH (10:22)
[2017-07-14] MEDS: SERTRALINE 50 MG TABLET PO SCH (10:22)
[2017-07-14] MEDS: ENOXAPARIN 30 MG/0.3 ML SYRINGE SUBCUT SCH (12:48)
[2017-07-14 13:56] VITALS: BP 148/80
== END 2017-07-14 16:05 | DRG 184 ==
LOC: EDUNIT# → EDBD → N.ED 04:30 → N.EDINP 06:48 → N.5E 09:34
PROVIDERS: ADMIT Family Medicine; ATTEND Family Medicine

== ENCOUNTER 2019-04-27 10:37 | Inpatient (IN) ==
[2019-04-27 12:48] LABS: Basophils % 0.5 % (0.0-0.8); Eosinophils # 0.2 10*3/uL (0.0-0.87); Eosinophils % 2.2 % (0.00-10.9); Hematocrit 37.5 VOL% (35.7-47.0); Hemoglobin 12.2 GM/DL (12.0-16.0); Immature Granulocytes % 0.3 %; Immature Granulocytes Absolute 0.02 #; Lymphocytes # 1.8 10*3/uL (1.4-4.0); Lymphocytes % 23.6 % (21.3-54.2); Mean Corpuscular HGB Conc 32.5 GM/DL (32-36); Mean Corpuscular Volume 91.7 FL (87-102); Mean Platelet Volume 10.5 FL (9.6-12.0); Monocytes % 5.9 % (1.7-12.7); Neutrophils % 67.5 % (38.7-73.9); Platelet Count 234 T/CUMM (130-400); Red Blood Count 4.09 MC/CUMM (3.8-5.5); Red Cell Distribution Width 14.4 % (9.3-17.3); White Blood Count 7.8 T/CUMM (4-12)
[2019-04-27 13:11] LABS: Alanine Aminotransferase 19 U/L (13-56); Albumin 3.2 G/DL (3.4-5.0); Alkaline Phosphatase 61 U/L (45-117); Aspartate Amino Transferase 16 U/L (0-37); Bilirubin,Total < 0.39 MG/DL (0.2-1.0); Blood Urea Nitrogen 31 MG/DL (7-18); Calcium 8.8 MG/DL (8.5-10.1); Glucose 111 MG/DL (74-106); Osmolality,Calculated 290.1 MOS/KG (273-304); Total Protein 6.9 G/DL (6.4-8.3)
[2019-04-27 13:12] LABS: Estimated Glom Filtration Rate 0 ML/MIN
[2019-04-27] MEDS ORDERED: ACETAMINOPHEN 325 MG TABLET PO PRN (14:10)
[2019-04-27] MEDS ORDERED: ONDANSETRON 4 MG/2 ML VIAL IV PRN (14:10)
[2019-04-27] MEDS: SODIUM CHLORIDE 0.9% 1,000 ML IV SCH ×2 (15:08→23:28)
[2019-04-27] MEDS ORDERED: INFLUENZA VIRUS VACCINE 0.5 ML SYRINGE IM ONE (15:21)
[2019-04-27] MEDS ORDERED: diphenhydrAMINE CAP 25 MG CAPSULE PO PRN (16:35)
[2019-04-27] MEDS ORDERED: LORazepam 2 MG/1 ML VIAL IV STA (16:38)
[2019-04-27] MEDS: GABAPENTIN 400 MG CAPSULE PO SCH (20:35)
[2019-04-27] MEDS: SERTRALINE 100 MG TABLET PO SCH (20:35)
[2019-04-27] MEDS: DOCUSATE SODIUM 100 MG CAPSULE PO SCH (20:35)
[2019-04-27] MEDS: PANTOPRAZOLE 40 MG TABLET PO SCH (20:35)
[2019-04-27] MEDS: DONEPEZIL 10 MG TABLET PO SCH (20:35)
[2019-04-28] MEDS: MULTIVITAMIN (BEROCCA) TABLET PO SCH (08:39)
[2019-04-28] MEDS: CETIRIZINE 10 MG TABLET PO SCH (08:39)
[2019-04-28] MEDS: DOCUSATE SODIUM 100 MG CAPSULE PO SCH ×2 (08:40→21:56)
[2019-04-28] MEDS: PANTOPRAZOLE 40 MG TABLET PO SCH ×2 (08:40→21:56)
[2019-04-28] MEDS: GABAPENTIN 400 MG CAPSULE PO SCH ×3 (08:40→21:55)
[2019-04-28] MEDS: CHOLECALCIFEROL 1,000 UNIT TABLET PO SCH (08:40)
[2019-04-28] MEDS: OMEGA 3 ACID ETHYL ESTERS 1 GM CAPSULE PO SCH (08:40)
[2019-04-28] MEDS: VITAMIN E 400 UNIT CAPSULE PO SCH (08:40)
[2019-04-28] MEDS: lisinopriL 10 MG TABLET PO SCH (08:40)
[2019-04-28] MEDS: MULTIVITAMIN (CENTRUM) TABLET PO SCH (08:40)
[2019-04-28] MEDS: LIDOCAINE 5% PATCH TRANSDERM SCH (08:40)
[2019-04-28] MEDS: SERTRALINE 50 MG TABLET PO SCH (08:44)
[2019-04-28] MEDS: SODIUM CHLORIDE 0.9% 1,000 ML IV SCH ×4 (08:48→23:14)
[2019-04-28] MEDS ORDERED: PANTOPRAZOLE 40 MG TABLET PO SCH (09:00)
[2019-04-28 17:46] LABS: Apearance,Urine CLOUDY (Clear); Bacteria,Urine Many /HPF (Few); Bilirubin,Urine Negative (Negative); Blood, Urine Large mg/dL (Negative); Glucose,Urine (UA) Negative (Negative); Hyaline Casts,Urine 5 /LPF (0-3); Ketones,Urine Negative (Negative); Mucus,Urine Occasional /LPF (Occasional); Nitrite,Urine Negative (Negative); Protein,Urine Negative; RBC,Urine 59 /HPF (0-4); Squamous Epithelial Cell,Urine Occasional /HPF (0-10); Urine Color Yellow (Yellow); Urine Specific Gravity 1.016 (1.001-1.035); Urine Urobilinogen < 2.0 EU/DL (0.2-1.0); WBC,Urine 175 /HPF (0-6)
[2019-04-28] MEDS: SERTRALINE 100 MG TABLET PO SCH (21:55)
[2019-04-28] MEDS: DONEPEZIL 10 MG TABLET PO SCH (21:56)
[2019-04-29] MEDS: GABAPENTIN 400 MG CAPSULE PO SCH ×3 (08:49→21:09)
[2019-04-29] MEDS: VITAMIN E 400 UNIT CAPSULE PO SCH ×2 (08:49→09:43)
[2019-04-29] MEDS: MULTIVITAMIN (CENTRUM) TABLET PO SCH (08:49)
[2019-04-29] MEDS: CETIRIZINE 10 MG TABLET PO SCH (08:49)
[2019-04-29] MEDS: CHOLECALCIFEROL 1,000 UNIT TABLET PO SCH (08:50)
[2019-04-29] MEDS: cefTRIAXone 1,000 MG in SYRINGE 1 EACH IV SCH (08:50)
[2019-04-29] MEDS: MULTIVITAMIN (BEROCCA) TABLET PO SCH (08:50)
[2019-04-29] MEDS: lisinopriL 10 MG TABLET PO SCH (08:50)
[2019-04-29] MEDS: LIDOCAINE 5% PATCH TRANSDERM SCH (08:50)
[2019-04-29] MEDS: DOCUSATE SODIUM 100 MG/10 ML UDCUP PO SCH ×2 (08:50→21:13)
[2019-04-29] MEDS: SODIUM CHLORIDE 0.9% 1,000 ML IV SCH ×3 (08:51→23:20)
[2019-04-29] MEDS: OMEGA 3 ACID ETHYL ESTERS 1 GM CAPSULE PO SCH (08:51)
[2019-04-29] MEDS: SERTRALINE 50 MG TABLET PO SCH (08:52)
[2019-04-29] MEDS: LANSOPRAZOLE 3 MG/ML 90 ML/BOTTLE PO SCH ×2 (09:32→21:13)
[2019-04-29] MEDS: DONEPEZIL 10 MG TABLET PO SCH (21:09)
[2019-04-29] MEDS: SERTRALINE 100 MG TABLET PO SCH (21:12)
[2019-04-30 06:34] LABS: Basophils % 0.7 % (0.0-0.8); Eosinophils # 0.3 10*3/uL (0.0-0.87); Eosinophils % 4.8 % (0.00-10.9); Hematocrit 33.9 VOL% (35.7-47.0); Immature Granulocytes % 0.2 %; Immature Granulocytes Absolute 0.01 #; Lymphocytes # 2.2 10*3/uL (1.4-4.0); Mean Corpuscular HGB Conc 32.4 GM/DL (32-36); Mean Corpuscular Volume 90.9 FL (87-102); Mean Platelet Volume 10.9 FL (9.6-12.0); Monocytes % 8.2 % (1.7-12.7); Neutrophils % 50.1 % (38.7-73.9); Platelet Count 182 T/CUMM (130-400); Red Blood Count 3.73 MC/CUMM (3.8-5.5); Red Cell Distribution Width 14.8 % (9.3-17.3)
[2019-04-30 06:53] LABS: Calcium 8.5 MG/DL (8.5-10.1); Osmolality,Calculated 287.8 MOS/KG (273-304)
[2019-04-30] MEDS: LIDOCAINE 5% PATCH TRANSDERM SCH (10:40)
[2019-04-30] MEDS: DOCUSATE SODIUM 100 MG/10 ML UDCUP PO SCH ×2 (10:41→20:48)
[2019-04-30] MEDS: CHOLECALCIFEROL 1,000 UNIT TABLET PO SCH (10:41)
[2019-04-30] MEDS: cefTRIAXone 1,000 MG in SYRINGE 1 EACH IV SCH (10:41)
[2019-04-30] MEDS: GABAPENTIN 400 MG CAPSULE PO SCH ×3 (10:42→20:49)
[2019-04-30] MEDS: MULTIVITAMIN (CENTRUM) TABLET PO SCH (10:42)
[2019-04-30] MEDS: VITAMIN E 400 UNIT CAPSULE PO SCH (10:43)
[2019-04-30] MEDS: OMEGA 3 ACID ETHYL ESTERS 1 GM CAPSULE PO SCH (10:43)
[2019-04-30] MEDS: CETIRIZINE 10 MG TABLET PO SCH (10:43)
[2019-04-30] MEDS: MULTIVITAMIN (BEROCCA) TABLET PO SCH (10:43)
[2019-04-30] MEDS: lisinopriL 10 MG TABLET PO SCH (10:43)
[2019-04-30] MEDS: LANSOPRAZOLE 3 MG/ML 90 ML/BOTTLE PO SCH ×2 (10:45→20:53)
[2019-04-30] MEDS: SERTRALINE 50 MG TABLET PO SCH (16:26)
[2019-04-30] MEDS: DONEPEZIL 10 MG TABLET PO SCH (20:48)
[2019-04-30] MEDS: SERTRALINE 100 MG TABLET PO SCH (20:53)
[2019-05-01] MEDS: SODIUM CHLORIDE 0.9% 1,000 ML IV SCH (01:40)
[2019-05-01] MEDS: cefTRIAXone 1,000 MG in SYRINGE 1 EACH IV SCH (10:16)
[2019-05-01] MEDS: MULTIVITAMIN (BEROCCA) TABLET PO SCH (10:16)
[2019-05-01] MEDS: MULTIVITAMIN (CENTRUM) TABLET PO SCH (10:16)
[2019-05-01] MEDS: ASPIRIN EC 81 MG TABLET PO SCH (10:16)
[2019-05-01] MEDS: GABAPENTIN 400 MG CAPSULE PO SCH ×3 (10:17→22:40)
[2019-05-01] MEDS: LANSOPRAZOLE 3 MG/ML 90 ML/BOTTLE PO SCH ×2 (10:17→22:41)
[2019-05-01] MEDS: SERTRALINE 50 MG TABLET PO SCH (10:17)
[2019-05-01] MEDS: VITAMIN E 400 UNIT CAPSULE PO SCH (10:17)
[2019-05-01] MEDS: CHOLECALCIFEROL 1,000 UNIT TABLET PO SCH (10:17)
[2019-05-01] MEDS: OMEGA 3 ACID ETHYL ESTERS 1 GM CAPSULE PO SCH (10:17)
[2019-05-01] MEDS: DOCUSATE SODIUM 100 MG/10 ML UDCUP PO SCH ×2 (10:17→22:41)
[2019-05-01] MEDS: CETIRIZINE 10 MG TABLET PO SCH (10:17)
[2019-05-01] MEDS: lisinopriL 10 MG TABLET PO SCH (10:17)
[2019-05-01] MEDS: LIDOCAINE 5% PATCH TRANSDERM SCH (10:17)
[2019-05-01] MEDS: DONEPEZIL 10 MG TABLET PO SCH (22:40)
[2019-05-01] MEDS: SERTRALINE 100 MG TABLET PO SCH (22:41)
[2019-05-02] MEDS: DOCUSATE SODIUM 100 MG/10 ML UDCUP PO SCH ×2 (08:54→20:58)
[2019-05-02] MEDS: MULTIVITAMIN (BEROCCA) TABLET PO SCH (08:55)
[2019-05-02] MEDS: cefTRIAXone 1,000 MG in SYRINGE 1 EACH IV SCH (08:55)
[2019-05-02] MEDS: GABAPENTIN 400 MG CAPSULE PO SCH ×3 (08:55→20:58)
[2019-05-02] MEDS: MULTIVITAMIN (CENTRUM) TABLET PO SCH (08:55)
[2019-05-02] MEDS: CHOLECALCIFEROL 1,000 UNIT TABLET PO SCH (08:55)
[2019-05-02] MEDS: OMEGA 3 ACID ETHYL ESTERS 1 GM CAPSULE PO SCH (08:55)
[2019-05-02] MEDS: CETIRIZINE 10 MG TABLET PO SCH (08:55)
[2019-05-02] MEDS: SERTRALINE 50 MG TABLET PO SCH (08:55)
[2019-05-02] MEDS: lisinopriL 10 MG TABLET PO SCH (08:55)
[2019-05-02] MEDS: VITAMIN E 400 UNIT CAPSULE PO SCH (08:55)
[2019-05-02] MEDS: ASPIRIN EC 81 MG TABLET PO SCH (08:55)
[2019-05-02] MEDS: LIDOCAINE 5% PATCH TRANSDERM SCH (08:56)
[2019-05-02] MEDS: LANSOPRAZOLE 3 MG/ML 90 ML/BOTTLE PO SCH ×2 (09:20→20:58)
[2019-05-02] MEDS: DEXTROSE 5% NACL 0.9% 1,000 ML IV SCH ×2 (10:52→23:26)
[2019-05-02] MEDS: SODIUM CHLORIDE 0.9% 1,000 ML IV SCH (16:14)
[2019-05-02] MEDS: SERTRALINE 100 MG TABLET PO SCH (20:58)
[2019-05-02] MEDS: DONEPEZIL 10 MG TABLET PO SCH (20:58)
[2019-05-03] MEDS: MULTIVITAMIN (BEROCCA) TABLET PO SCH (08:49)
[2019-05-03] MEDS: DOCUSATE SODIUM 100 MG/10 ML UDCUP PO SCH (08:49)
[2019-05-03] MEDS: OMEGA 3 ACID ETHYL ESTERS 1 GM CAPSULE PO SCH (08:49)
[2019-05-03] MEDS: ASPIRIN EC 81 MG TABLET PO SCH (08:49)
[2019-05-03] MEDS: lisinopriL 10 MG TABLET PO SCH (08:49)
[2019-05-03] MEDS: LANSOPRAZOLE 3 MG/ML 90 ML/BOTTLE PO SCH (08:49)
[2019-05-03] MEDS: MULTIVITAMIN (CENTRUM) TABLET PO SCH (08:49)
[2019-05-03] MEDS: GABAPENTIN 400 MG CAPSULE PO SCH ×2 (08:49→14:22)
[2019-05-03] MEDS: CETIRIZINE 10 MG TABLET PO SCH (08:50)
[2019-05-03] MEDS: CHOLECALCIFEROL 1,000 UNIT TABLET PO SCH (08:50)
[2019-05-03] MEDS: SERTRALINE 50 MG TABLET PO SCH (08:50)
[2019-05-03] MEDS: VITAMIN E 400 UNIT CAPSULE PO SCH (08:50)
[2019-05-03] MEDS: cefTRIAXone 1,000 MG in SYRINGE 1 EACH IV SCH (09:38)
[2019-05-03] MEDS: LIDOCAINE 5% PATCH TRANSDERM SCH (09:39)
[2019-05-03 11:51] VITALS: BP 168/78
[2019-05-03] MEDS: DEXTROSE 5% NACL 0.9% 1,000 ML IV SCH (14:02)
== END 2019-05-03 15:10 | disposition home health service (06) | DRG 689 ==
LOC: EDUNIT# → N.ED 10:37 → N.EDINP 10:37 → N.5E 13:04
PROVIDERS: ADMIT Family Medicine; ATTEND Family Medicine